=== PATIENT | female | born 1985 | race Caucasian/White ===

== ENCOUNTER → 2018-12-13 | Outpatient (CLI) | payer OTHER ==
--- NOTE | 2018-12-19 14:27 | SLEEPHOME ---
DATE OF STUDY: 12/13/2018 ORDERED BY: Delores Sultana Diagnostic home sleep testing was performed due to concern for the obstructive sleep apnea syndrome in this patient with a history of excessive somnolence and nonrestorative sleep. For testing, a nocturnal T3 respiratory monitoring device was used. Continuous record was made of pulse, oxygen saturation, airflow, chest and abdominal strain, and body position. 9 hours and 59 minutes of data were reviewed. There are 7 hours and 49 minutes marked as time in bed. During the interval marked time in bed, there were 49 respiratory events identified of 10 seconds in duration or greater for a respiratory event index of 6.3. The events were primarily obstructive. Baseline pulse rate 75 beats per minute. Pulse rate ranged 42-106. Baseline saturation 94%. Saturations were seen to fall to 82%, with an oxygen desaturation index of 4.7. Testing was performed in both the supine and nonsupine positions. IMPRESSION: Abnormal home sleep testing with repetitive respiratory events and oxygen desaturations to 82% with a respiratory event index of 6.3 is consistent with the obstructive sleep apnea syndrome. RECOMMENDATION: The patient should be encouraged to undergo formal sleep evaluation.
== END ==
LOC: M SLEEP HO 13:28
PROVIDERS: ATTEND Nurse Practitioner Family
DX: R06.83 Snoring (principal)